=== PATIENT | female | born 1950 | race Caucasian/White ===

== ENCOUNTER 2017-02-24 16:13 | Emergency (ER) | payer OTHER, MEDICARE ==
[~2017-02-24] VITALS: Ht 154.9 cm; Wt 61.4 kg
[2017-02-24 16:19] VITALS: BP 140/72; PULSE 82; RESP 20; O2SAT 96
[2017-02-24 17:30] LABS: BASOPHILS % (AUTO) 0.4 % (0-3); EOSINOPHILS % (AUTO) 1.4 % (0-5); MONOCYTES % (AUTO) 12.1 % (4-12); Mean Corpuscular Hemoglobin 27.6 pg (27.0-35.0); Mean Corpuscular Volume 78.9 fL (81-100); NEUTROPHILS % (AUTO) 51.9 % (40-74); Platelet Count 246 bil/L (150-400)
--- NOTE | 2017-02-24 17:37 | ED.REPORT ---
HPI-Abd Pain F 40 and Over Date of Service Feb 24, 2017 ED Provider: Juan Sullivan MD Patient is a 66 year old female who presents to the ED complaining of epigastic and RUQ abdominal pain that began 4 days ago. She has had severe, persistent, "squeezing" abdominal pain for the past 2 days. She experienced similar pain one year ago that resolved without intervention, she states that she had a workup but they were never able to figure out the cause. Patient visited her PCP yesterday who obtained lab work that has not been resulted yet, meanwhile symptoms have not resolved causing her to decide to come to the emergency room. Associated symptoms include decreased appetite, nausea and vomiting. Her symptoms have been persistent since onset. Patient is a difficult historian secondary to pain. Nursing Notes Stated Complaint: ABDOMINAL PAIN Chief Complaint: Female Abdominal Pain Nursing Notes Reviewed: Yes Allergies: Coded Allergies: Penicillins (Verified Allergy, Intermediate, Rash,Itching,, 02/24/17) Scheduled PRN Hydrocodone-Acetaminophen 5-325 mg (Hydrocodone-Acetaminophen 5-325 mg) 1 Each Tablet 1 TABLET PO Q4H PRN PRN For Pain General Time Seen by MD: 16:30 Chief Complaint Abdominal pain Hx Obtained From: Patient Arrived By: Walk-in Sudden in Onset?: No Onset Occurred: 4 days ago Symptom Duration: Since onset Progression since Onset: Gradually worsening Location: : RUQ Quality: Painful Radiation: : Does not radiate Severity: Current: Moderate Severity: Maximum: Moderate Associated with: Reports: Nausea, Vomiting Pertinent Negative: Pt denies other symptoms Recent Healthcare: No recent hospitalization, Recent doctor visit Risk Factors )( AAA Risk Stratification Risk factors reviewed Past Medical History Past Medical History None reported. Past Surgical History None reported. Smoking History Unknown if Ever Smoker Social History Other Social History: Good social support, , Local resident Ambulatory Status Independent Review of Systems GI: Reports: Abdominal pain, Nausea, Vomiting Complete sys rev & neg: except as marked. Physical Exam Vital Signs Vital Signs (First) Date Time Temp Pulse Resp B/P Pulse Ox O2 Delivery O2 Flow Rate FiO2 02/24/17 16:19 37 82 20 140/72 96 Room Air Initial VS: Reviewed Head / Eyes: Atraumatic, Normocephalic, PERRL Neck: Supple, Non-tender, Full range of motion Extremities: Vascular intact, Neuro intact, No swelling, No tenderness Skin: Warm, Dry, No cyanosis Neurologic: Alert, Oriented, Nonfocal Psychiatric: Mood/affect normal, Behavior normal, Normal thought content General/Constitutional: Awake, Alert Distress / Hydration: Positive: Distress moderate (secondary to pain) GENERAL: Appears to be in significant pain Respiratory / Chest: Atraumatic, Breath sounds NL, Breath sounds = bilat, No respiratory distress Cardiovascular: Heart rate NL, Regular rhythm, Heart sounds NL, No gallop, No murmurs, No rubs Abdomen: Atraumatic, Soft, No guarding, No rebound, No distention, No palpable mass, No pulsatile mass Tenderness/Guarding/Rebound: Positive: Tender RUQ... Back: Atraumatic, Inspection NL Interpretation & Diagnostics ABDOMINAL CT w/ contrast Read by Radiology IMPRESSION: 1. No acute intra-abdominal process identified on CT. 2. Probably small hepatic cyst in left hepatic lobe. 3. Mild diverticulosis. No acute diverticulitis. Dictated by: Zeus Begum M.D. on 02/24/2017 at 19:36 Lab Results Interpretation Result Diagram: 02/24/17 1715 02/24/17 1715 Test 02/24/17 17:15 02/24/17 18:54 White Blood Count 5.0th/mm3 (3.8-10.1) Red Blood Count 4.93mil/mm3 (3.90-5.20) Hemoglobin 13.6g/dL (12.0-15.6) Hematocrit 38.9% (35.0-46.0) Mean Corpuscular Volume 78.9fL (81-100) Mean Corpuscular Hemoglobin 27.6pg (27.0-35.0) Mean Corpuscular Hemoglobin Concent 35.0% (32.0-37.0) Red Cell Distribution Width 12.6% (12.3-15.4) Platelet Count 246bil/L (150-400) Neutrophils (%) (Auto) 51.9% (40-74) Lymphocytes (%) (Auto) 34.2% (14-46) Monocytes (%) (Auto) 12.1% (4-12) Eosinophils (%) (Auto) 1.4% (0-5) Basophils (%) (Auto) 0.4% (0-3) Sodium Level 136mEq/L (134-144) Potassium Level 3.9mEq/L (3.5-5.2) Chloride Level 100mEq/L (97-108) Carbon Dioxide Level 19mmol/L (18-29) Blood Urea Nitrogen 8mg/dL (8-27) Creatinine 0.66mg/dL (0.57-1.00) Estimat Glomerular Filtration Rate 129mL/min (>59) Glucose Level 111mg/dL (60-99) Lactic Acid Level 1.2mmol/L (0.4-2.0) Calcium Level 9.6mg/dL (8.5-10.1) Magnesium Level 1.9mg/dL (1.6-2.6) Total Bilirubin 0.5mg/dL (0.0-1.2) Aspartate Amino Transf (AST/SGOT) 21U/L (0-50) Alanine Aminotransferase (ALT/SGPT) 13U/L (0-32) Alkaline Phosphatase 51U/L (25-165) Total Protein 6.5g/dL (6.4-8.4) Albumin 4.2g/dL (3.4-5.0) Lipase 26U/L (13-60) Urine Color Yellow (YELLOW) Urine Appearance Clear (CLEAR,HAZY) Urine pH 7.0 (5.0-8.0) Urine Specific [place] 1.010 (1.003-1.035) Urine Protein Negativemg/dL (NEG,TRACE) Urine Glucose (UA) Negativemg/dL (NEGATIVE) Urine Ketones Tracemg/dL (NEGATIVE) Urine Occult Blood Negative (NEGATIVE) Urine Nitrite Negative (NEGATIVE) Urine Bilirubin Negative (NEGATIVE) Urine Urobilinogen Normalmg/dL (NORMAL) Urine Leukocyte Esterase Negative (NEGATIVE) Urine RBC 0-2/hpf (0-2) Urine WBC 0-5/hpf (0-5) Urine Epithelial Cells Few/hpf (NONE-MOD) Urine Crystals None seen (NONE SEEN) Urine Bacteria Few/hpf (NONE-FEW) Urine Hyaline Casts None/lpf (NONE) Urine Granular Casts None seen (NONE SEEN) Urine Waxy Casts None seen (NONE SEEN) Urine Red Blood Cell Casts None seen (NONE SEEN) Urine White Blood Cell Casts None seen (NONE SEEN) Urine Mucus None seen (None Seen) Urine Trichomonas None seen (NONE SEEN) Urine Yeast None (NONE SEEN) Urinalysis Comment None Urine Culture Reflexed Not indicated ECG Interpretation ECG Interpretation: Sinus rhythm Rate 70 Normal axis Normal intervals No T wave abnormalities No prior for comparison Time: 18:54 Interpreted by: ED physician Re-Eval/Medical Decision Med Decision/Clinical Course Patient is a 66 year old female who presents to the ED complaining of epigastic and RUQ abdominal pain that began 4 days ago. She has had severe, persistent, "squeezing" abdominal pain for the past 2 days. She experienced similar pain one year ago that resolved without intervention, she states that she had a workup but they were never able to figure out the cause. Patient visited her PCP yesterday who obtained lab work that has not been resulted yet, meanwhile symptoms have not resolved causing her to decide to come to the emergency room. Here in the emergency department the patient is afebrile stable vital signs and examination as above. She has some mild tenderness in the epigastrium and the right upper quadrant however she tolerates very firm palpation throughout her abdomen without any significant tenderness, guarding, rigidity or rebound. The patient was treated with the below medications: Dilaudid Zofran IV fluids Thereafter she was reassessed and reported feeling much better. Serial abdominal examinations remained relatively benign. ABDOMINAL CT 1. No acute intra-abdominal process identified on CT. 2. Probably small hepatic cyst in left hepatic lobe. 3. Mild diverticulosis. No acute diverticulitis. EKG Sinus rhythm Rate 70 Normal axis Normal intervals No T wave abnormalities No prior for comparison Laboratory studies notable as below: CBC unremarkable CMP unremarkable Lactic acid within normal limits Cause of the patient's pain remains unclear at this time. Presentation is not classically suggestive of biliary colic or acute cholecystitis and there are no findings suggestive thereof on CT. Given my relatively low pretest probability I do not feel that immediately progressing to ultrasound is warranted at this moment. I am reassured by her laboratory and CT scan findings. Serial abdominal examinations remained benign. After above medications patient reported feeling much better and tolerated PO. She has had similar episodes of abdominal pain in the past that have resolved on their own with unrevealing workup. Nature of her pain is not entirely convincing peptic ulcer disease or gastritis either. I feel that she would benefit from workup by a GI specialist and I have referred her accordingly. She is advised to return to the emergency room immediately should she develop any recurrent or worsening symptoms. Serial abdominal examinations remain without any significant tenderness and I feel that further workup on an outpatient basis with good return precautions is reasonable. Prior to discharge follow-up and return precautions were reviewed in detail with the patient who verbalized understanding and agreement with the plan. The patient was discharged in stable condition. Re-Evaluation/Progress : Time of Eval: 19:50 Patient Status: Condition improved Re-Evaluation/Progress Note: Patient is rechecked. She is informed of her results and diagnosis. All questions about the intended treatment plan are addressed. She understands and agrees with the plan to discharge with follow up. Counseled Regarding: Diagnosis, Lab results, Need for follow-up, When/why to return to ED Discharge & Departure Primary Impression: Abdominal pain Abdominal location: unspecified location Qualified Code: R10.9 - Unspecified abdominal pain Additional Impressions: Decreased appetite Nausea and vomiting Vomiting type: unspecified Vomiting Intractability: unspecified Qualified Code: R11.2 - Nausea with vomiting, unspecified Disposition: Home Discharge Condition All VS Reviewed: Yes Condition: Improved Patient Instructions: Acute Abdominal Pain (ED) Additional Instructions: Thank you for seeking care at emergency room. Our primary goal today in the ED was to evaluate you for any life-threatening conditions. Your evaluation was reassuring. You will be discharged with a prescription for [place]* You should follow-up with your primary doctor in the next week. I recommend that you follow up with the referred GI specialist. You should return to the ED immediately if you develop worsening nausea, vomiting, blood in your stool, worsening abdominal pain or any other concerning signs or symptoms. Thank you for letting us partake in your care today. *You have been prescribed a narcotic for pain relief. These drugs are usually combined with acetaminophen (Tylenol#3, Percocet, Darvocet, Anexsia, Vicodin) or aspirin (Empirin#3, Percodan, Synalogs-DC) for increased effect. Narcotics act on the central nervous system to reduce pain; they also impair mental alertness and physical abilities. We advise you not to drink alcohol, drive a car, or operate dangerous equipment when you are taking theses drugs. You can lessen stomach irritation from your medicine by taking it with meals or a full glass of water. Common side effects of narcotics are: Nausea and vomiting, heartburn, constipation, dizziness, sleepiness, and mood changes. If you have bothersome side effects or symptoms of an allergic reaction (itching, hives, rash), stop taking your medicine and call your doctor or the emergency room right away. Please keep your narcotic medicine well out of the reach of children. Referrals: Ricardo Waite MD (PCP) Ez Contreras MD [facility] Portions of this note were transcribed by Paulo Shaw. I, Dr. Sullivan personally performed the history, physical exam and medical decision-making; I reviewed and confirmed the accuracy of the information in the transcribed note. Signed by: Ranjan Thakkar, 02/24/17 2113. copies to: Ricardo Waite MD, Beck O MD Feb 24, 2017 17:36 PAULO SHAW Feb 24, 2017 17:40
[2017-02-24 17:48] LABS: Magnesium 1.9 mg/dL (1.6-2.6)
[2017-02-24] MEDS ORDERED: 0.9% Sodium Chloride 1,000 ML IV ONE (17:48)
[2017-02-24] MEDS ORDERED: HYDROmorphone 0.5 mg/0.5 mL iSecure Syringe IVPUSH PRN (17:50)
[2017-02-24] MEDS ORDERED: Ondansetron 2 mg/mL 2 mL Inj IVPUSH ONE (17:50)
[2017-02-24] MEDS ORDERED: Promethazine Inj 25 MG in 0.9% Sodium Chloride 50 ML IV ONE (18:10)
[2017-02-24 19:05] LABS: APPEARANCE,URINE CLEAR (CLEAR,HAZY); COLOR,URINE YELLOW (YELLOW); OCCULT BLOOD,URINE NEGATIVE (NEGATIVE); UROBILINOGEN,URINE NORMAL (NORMAL)
[2017-02-24 19:15] VITALS: BP 164/97; PULSE 84; RESP 20; O2SAT 96
--- NOTE | 2017-02-24 19:42 | DRSVH ---
PROCEDURE: CT ABDOMEN AND PELVIS WITH CONTRAST ([id number]) INDICATIONS: 66 year-old woman with abdominal pain. TECHNIQUE: After the administration of intravenous contrast, 5 mm thick sections acquired from the diaphragm to the symphysis. 5 mm coronal and sagittal reformats were acquired. For radiation dose reduction, the following was used: automated exposure control, adjustment of mA and/or kV according to patient siz e. COMPARISON: None. FINDINGS: Image quality: Excellent. ABDOMEN: Lung bases: Lung bases are clear. Heart size is normal. Process myocardial. Solid organs: A 7 mm indeterminate hepatic hypodensity in the left hepatic lobe is probably a cyst. Liver and spleen are normal in size and enhancement. Gallbladder is normal. Biliary system is non d ilated. Pancreas enhances normally. No adrenal nodules. Kidneys demonstrate normal size and enhanc ement, without hydronephrosis. Peritoneum and bowel: Bowel loops demonstrate normal wall thickness and caliber. There are a few co lonic diverticula. No evidence for acute diverticulitis. No free fluid or air. Nodes and vessels: No retroperitoneal or mesenteric adenopathy by size criteria. Aorta and inferior vena cava are normal in size. Miscellaneous: No ventral hernias. PELVIS: Genitourinary: Bladder wall thickness is normal. Miscellaneous: No inguinal hernias or adenopathy. Bones: No suspicious bony lesions. No vertebral body compression fractures. IMPRESSION: 1. No acute intra-abdominal process identified on CT. 2. Probably small hepatic cyst in left hepatic lobe. 3. Mild diverticulosis. No acute diverticulitis. Dictated by: Zeus Bgeum M.D. on 02/24/2017 at 19:36 Approved by: Zeus Begum M.D. on 02/24/2017 at 19:40
[2017-02-24] MEDS ORDERED: HYDR-4003 PO (19:52)
[2017-02-24 20:06] VITALS: BP 122/64; PULSE 76; RESP 16; O2SAT 96
[2017-03-13] MEDS ORDERED: [UNRECOGNIZED DRUG - OTHER] PO (14:11)
[2017-03-13] MEDS ORDERED: HYDR200T PO (14:11)
[2017-03-13] MEDS ORDERED: HYDR200T5 PO (14:11)
[2017-03-13] MEDS ORDERED: CARV12.52 PO (14:11)
[2017-03-13] MEDS ORDERED: ESTR1PAT39 TD (14:11)
[2017-03-13] MEDS ORDERED: PRD1T PO (14:11)
[2017-03-13] MEDS ORDERED: OMEP20CA11 PO (14:11)
[2017-03-13] MEDS ORDERED: SUMA100T2 PO (14:11)
== END 2017-02-24 20:03 | disposition home or self-care (01) ==
LOC: SED 16:13
DX: R10.11 Right upper quadrant pain (principal); R63.0 Anorexia; R11.2 Nausea with vomiting, unspecified; Z88.0 Allergy status to penicillin
CPT/HCPCS: 36415; 74177; 80053; 81000; 83605; 83690; 83735; 85025; 93005; 96361; 96374; 96375; 99285; J1170; J2405; J2550; J7030; Q9967

== ENCOUNTER 2017-03-14 12:51 | Day surgery (SDC) | payer OTHER, MEDICARE ==
[~2017-03-14] VITALS: Ht 154.9 cm; Wt 59.0 kg
[~2017-03-14 12:51] MED LIST: 0.9% Sodium Chloride 1,000 ML IV PRN; CARV12.52 PO; ESTR1PAT39 TD; HYDR-4003 PO; HYDR200T PO; HYDR200T5 PO; OMEP20CA11 PO; PRD1T PO; SUMA100T2 PO; Sodium Chloride LOK Flush 10 mL Syringe IV PRN; [UNRECOGNIZED DRUG - OTHER] PO; fentaNYL-PF 50 mCg/mL 2 mL Inj IVPUSH PRN
[2017-03-14 13:16] VITALS: BP 121/74; PULSE 78; RESP 16; O2SAT 96
[2017-03-14] MEDS ORDERED: TRAM50TA2 PO (13:16)
[2017-03-14] MEDS ORDERED: MAGN500C4 PO (13:23)
[2017-03-14 15:04] VITALS: BP 130/69; PULSE 68; RESP 14; O2SAT 98
[2017-03-14 15:14] VITALS: BP 115/66; PULSE 69; RESP 14; O2SAT 97
[2017-03-14 15:25] VITALS: BP 125/67; PULSE 70; RESP 12; O2SAT 97
[2017-03-14 15:40] VITALS: BP 138/77; PULSE 69; RESP 14; O2SAT 97
--- NOTE | 2017-03-14 16:10 | ENDO ---
[address] [address] ENDOSCOPY PROCEDURE PATIENT: JULIAN BOLES : 1950 MR#: [id number] ADMIT: 03/14/2017 JOB ID: [id number] DATE: 03/14/2017 PRIMARY PROVIDER: Jacquelyn Erwin PROCEDURE: 1. Esophagogastroduodenoscopy with biopsy. 2. Colonoscopy. INDICATIONS: A 66-year-old female with epigastric pain in the setting of NSAID use. Clinically, she has improved since discontinuation of Excedrin. She is on PPI. She also reports for colon cancer screening. She has a tendency towards constipation. EQUIPMENT: GIF H 180 J and a PCF H 190 DL. SEDATION: 1. 7 mg Versed. 2. 150 mcg fentanyl. COMPLICATIONS: None identified. BOWEL PREPARATION: Fair, adequate examination. PROCEDURAL INFORMATION: After the risks and benefits were explained, written and verbal informed consent was obtained. The patient was brought into the endoscopy suite and placed into the left lateral decubitus position. Sedation was achieved as above. The scope introduced into the mouth through the bite block, and advanced under direct visualization to the first portion of the duodenum. We encountered a very tight ulcerated smooth stricture between D1 and D2 and could not advance the scope through this location. I suspect this was NSAID induced. I did not see any obvious signs of neoplasia at this time. The scope was withdrawn. Retroflexed views were accomplished in the stomach. The stomach was decompressed. The scope removed from the patient who tolerated the procedure reasonably well. The patient was then turned around. A digital rectal examination accomplished. Apart from some mild internal hemorrhoids. No other significant pathology appreciated. The scope was introduced into the rectum and advanced to the cecum as identified by the appendiceal orifice and ileocecal valve. The scope was slowly withdrawn to carefully examine the mucosa for any defects or lesions. Multiple direct views were made through the dentate line for exclusion of pathology. The colon was decompressed. Scope removed from the patient who tolerated the procedure reasonably well. FINDINGS: 1. Duodenum: Smooth ulcerated high-grade stenosis encountered between D1 and D2 which prohibited passage of the endoscope into D2. This was a difficult stricture to even see as it was well around the corner between D1 and D2. 2. Stomach: No outlet obstruction. No masses. No ulcers. Minimal nonspecific gastropathy appreciated and, therefore, biopsy was acquired for exclusion of Helicobacter or other pathology. Retroflexed views of the LES were unremarkable apart from a subtle sliding hiatal hernia. 3. Esophagus: The squamocolumnar junction correlated with the top of the gastric folds. The GEJ was at 36 cm from the incisors. No acute erosive changes. No strictures. No mass lesions. The remainder of the esophagus appeared unremarkable. 4. Colon: The patient had an exceptionally difficult navigation through the left colon. This is quite a tortuous twisty course. I did not see any signs of polyps, mass lesions or any inflammation throughout. ENDOSCOPIC DIAGNOSES: 1. Hiatal hernia. 2. Minimal gastropathy. 3. Ulcerated duodenal stricture. 4. Mild hemorrhoids. 5. Challenging cecal navigation. RECOMMENDATIONS: 1. Await histopathology. 2. Continue exceptionally well chewed food. 3. Continue b.i.d. PPI. 4. Continue to avoid all nonsteroidal anti-inflammatory therapy. 5. Repeat EGD in approximately four weeks' time. I would recommend anesthesia with her next procedure in that she had a difficult time accepting the endoscope in her oropharynx and intubation was challenging. I am going to additionally request fluoroscopy for this examination in that we may need to dilate the duodenum to get through into D2 proper. 6. Repeat colon cancer screening with colonoscopy can be considered in 10 years' time. At that time, if alternative means are readily available, I would recommend this as first line.
--- NOTE | 2017-03-17 13:41 | PATH ---
SURGICAL PATHOLOGY Attending Physician:Kaelyn Adams CASE STATUS: Signed Out PATIENT NAME: JULIAN BOLES PID: [id number] : 1950 DATE COLLECTED:03/14/2017 00:00 SPECIMEN: Gastric, Biopsy CLINICAL HISTORY: 1. GASTRIC BX AND R/O H.PYLORI FINAL DIAGNOSIS: 1.STOMACH, BIOPSY: BODY-TYPE MUCOSA WITH MILD CHRONIC GASTRITIS. Negative for Helicobacter organisms by immunohistochemistry. Negative for intestinal metaplasia. Negative for dysplasia and malignancy. ICD10 R10.9 GROSS DESCRIPTION: The specimen is received in one formalin filled container labeled with the patient's name, sublabeled "gastric" and consists of a 0.2 x 0.2 x 0.2 CM portion of tissue which is entirely submitted in one cassette. 03/15/2017DC MICRO DESCRIPTION: An immunohistochemical stain was performed to evaluate for Helicobacter organisms and is negative. A control stain showed appropriate reactivity. This test was developed and its performance characteristics determined by [employer]. It has not been cleared or approved by the U. S. Food and Drug Administration. The FDA has determined that such clearance or approval is not necessary. This test is used for clinical purposes. It should not be regarded as investigational or for research. ICD-9 CODES: CPT CODES: 1: 74923, 93596 Electronically Signed Out Keke Choi MD [facility] Pathology [facility] [address], [place] [address] Technical component performed at [facility], [address], [place], [address]
== END 2017-03-14 23:59 | disposition home or self-care (01) ==
LOC: END 12:51
PROVIDERS: ATTEND Internal Medicine Gastroenterology
DX: Z12.11 Encounter for screening for malignant neoplasm of colon (principal); R10.13 Epigastric pain; K29.50 Unspecified chronic gastritis without bleeding; K31.5 Obstruction of duodenum; K44.9 Diaphragmatic hernia without obstruction or gangrene; K26.9 Duodenal ulcer, unspecified as acute or chronic, without hemorrhage or perforation; K64.8 Other hemorrhoids
CPT/HCPCS: 43239; 99153; G0121; G0500; J2250; J3010; J7030

== ENCOUNTER 2017-04-11 13:45 | Day surgery (SDC) | payer OTHER, MEDICARE ==
[~2017-04-11] VITALS: Ht 154.9 cm; Wt 59.0 kg
[~2017-04-11 13:45] MED LIST changes: -0.9% Sodium Chloride 1,000 ML IV PRN; +0.9% Sodium Chloride 1,000 ML IV SCH; -HYDR200T5 PO; +IMI100 PO; +Lactated Ringer's 1,000 ML IV ONE; +MAGN500C4 PO; -SUMA100T2 PO; +TRAM50TA2 PO
[2017-04-11] MEDS ORDERED: MetoCLOpramide 5 mg/mL 2 mL Inj ONE (13:46)
[2017-04-11] MEDS ORDERED: Propofol 10,000 mCg/mL 20 mL Inj ONE (13:46)
[2017-04-11] MEDS ORDERED: Ketamine 10 mg/mL 20 mL Inj ONE (13:46)
[2017-04-11 14:14] VITALS: BP 146/78; PULSE 73; RESP 16; O2SAT 97
[2017-04-11] MEDS ORDERED: ACET-2766 PO (14:21)
[2017-04-11] MEDS ORDERED: POLY17PO6 PO (14:21)
--- NOTE | 2017-04-11 14:57 | PCM.HPANE ---
Patient Data Date of Service: Apr 11, 2017 Surgeon Admitting Provider: Attending Provider:Darvin Gaming MD Primary Care Physician:Jacquelyn Erwin MD Other Provider:Niesha López Anesthesia Reason for Visit Duodenal Stricture Ht/WT & BMI Height (Feet): 5 Height (Inches): 1 Weight (Kilograms): 58.97 Body Mass Index 24.00 Allergies Coded Allergies: Penicillins (Verified Allergy, Intermediate, Rash,Itching,, 03/14/17) Past Anesthesia History Anesthesia History: Denies:: Abnormal Airway, Anesthesia Reactions, Difficult Intubation, Fam Anesthesia Reaction, Fam Malignant Hypertherm, Malignant Hyperthermia Diabetes History Hx Diabetes?: No MRSA MRSA: No Medications Hypertension Medication: Yes Home Meds Incl Beta Spring: Yes Date Beta Spring Taken: Apr 11, 2017 Time Beta Spring Taken: 0800 Reported Medications Polyethylene Glycol 3350 (Miralax)17 Gm Powd.pack17 Gm PO Q2DAY 04/11/17 Acetaminophen (Tylenol Arthritis)650 Mg Tablet.er650 Mg PO DAILY 04/11/17 Sumatriptan (Imitrex)100 Mg Pwkidr929 Mg PO BID PRN For Headache 04/07/17 Magnesium Oxide (Magnesium)500 Mg Sllbvqt735 Mg PO DAILY 03/14/17 Tramadol 50 Mg Jtvsmw12 Mg PO HS PRN For Pain Ref 0 03/14/17 Hydroxychloroquine Sulfate (Plaquenil)200 Mg Xsrkcx971 Mg PO 03/13/17 Omeprazole 20 Mg Capsule.dr20 Mg PO BID Ref 0 03/13/17 [Excedrin Extra] No Conflict Iktlr415 Mg PO DAILY 03/13/17 Carvedilol 12.5 Mg Ittzcs83.5 Mg PO BID Ref 0 03/13/17 Discontinued Reported Medications PredniSONE 1 Mg Tab1 Mg PO UD Ref 0 04/07/17 Hydrocodone-Acetaminophen 5-325 mg 1 Each Tablet1 Tablet PO Q4H PRN For Pain Ref 0 04/07/17 Estradiol/Levonorgestrel (Climara Pro Patch)1 Each Patch.tdwk1 Each TD WEEKLY 04/07/17 History History of ENT Problems?: No HEENT History: Denies:: Abnormal Airway Difficult Intubation Dysphagia Hearing Problem Denture Type: None Teeth Condition: Tooth Decay Hx of Heart Problems?: Yes Cardiovascular History: Positive for:: Hypertension Denies:: AICD Atrial Fibrillation Chest Pain Coronary Artery Disease Pacemaker Valvular Heart Disease Other Cardiac History: no RI Hx of Respiratory Problem?: No Respiratory History: Denies:: Asthma Tuberculosis Use of Inhalers / NEBS Hx Neurologic Problems?: Yes Neurological History: Positive for:: Headaches (migraines) Denies:: CVA Seizures TIA Other Neurological Pertinent: neurofibromatosis - cutaneous; 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 Other Skin Pertinent History: neurofibromatosis Hx Musculoskeletal Problems?: Yes Musculoskeletal History: Denies:: Fibromyalgia Joint Replacement Other History/Comment rheumatoid arthritis - weaned off prednisone Hx of Psycho/Social Problems?: No Psycho Social History: Denies:: Anxiety Hx Depression Hx Surgeries?: Yes (hysto, arthro knee, tonsils) Hx Any Other Health Problems?: Yes Other History: Positive for:: Hospitalization History Blood Transfusions: Positive for:: Accept Blood Products? Denies:: Blood Transfusions Hx Diabetes: No Hx Alcohol Use: NoHx Substance Use: No Smoking Status: Never Smoker Unknown if Ever Smoker Have You Smoked inLast 12 mo: No Stop/Bang Treated for Sleep Apnea?: No Do You Have a CPAP Machine?: No S-Snoring: Do You Snore Loudly: No T-Tired: feel tired, fatigued: No O-Obsered: Observed not breath: No P-Blood Pressure: treated: Yes B- Body Mass Index > 35 kg/m2: No A- Age over 50: Yes N- Neck Large Circumference: No G- Gender Male: No ROSALIO Total Score: 2 ROSALIO Risk Assessment: Low Risk, <3 Yes Risk Assessment Category Category 1A: Patient has history of documented sleep apnea, and HAS NOT received any narcotic, sedative or anesthesia administration during this stay. Category 1B: Patient has history of documented sleep apnea, and HAS received any narcotic , sedative or anesthesia administration during this stay Category 2: Patient has SUSPECTED Obstructive Sleep Apnea, and HAS received any narcotic , sedative or anesthesia administration during this stay. Category 3: Patient has SUSPECTED Obstructive Sleep Apnea and HAS NOT received narcotic, sedative or anesthesia administration during this stay. Category 4: Outpatient in Procedural Areas with known sleep apnea or who screen positive for High Risk via the STOP/BANG questionnaire. Exam Exam Vital Signs Vital Signs Date Time Temp Pulse Resp B/P Pulse Ox O2 Delivery O2 Flow Rate FiO2 04/11/17 14:14 73 16 146/78 97 Room Air General Appearance: Alert, Oriented X3, Cooperative, No Acute Distress HEENT/AIRWAY: MP 2, Neck Movement (from), Mouth Opening (3), Other (tmd3) Lungs: Normal Air Movement Heart: Exam Unremarkable, Regular Rate/Rhythm, Normal S1, Normal S2, No Murmurs /Rubs/Gallops Meds/Labs/Diagnostics Admission Meds Current Medications Lactated Ringer's (Lr) 1,000 ml @ 10 mls/hr Q24H ONCE IV Last administered on 04/11/17t 14:44; Start 04/11/17 at 06:00; Stop 04/12/17 at 05:59 Plan Impression Patient chart reviewed, patient interviewed and anesthestic plan with risks, benefits, and alternatives discussed, and informed consent obtained. NPO per Anesth. Guidelines: Yes ASA Physical Status: ASA3 Severe Disease Anesthetic Plan: TIVA Bene/Risks/Altern/Consents: Yes HP Complete Prior to Induction: Yes Jayson Hayes MD Apr 11, 2017 14:56
[2017-04-11 16:22] VITALS: BP 124/67; PULSE 85; RESP 16; O2SAT 97
[2017-04-11 16:32] VITALS: BP 133/66; PULSE 82; RESP 16; O2SAT 99
--- NOTE | 2017-04-11 16:41 | ENDO ---
[address] [address] ENDOSCOPY PROCEDURE PATIENT: JULIAN BOLES : 1950 MR#: [id number] ADMIT: 04/11/2017 JOB ID: [id number] DATE OF SERVICE: 04/11/2017 PRIMARY PROVIDER: Jacquelyn Erwin MD PROCEDURE: Esophagogastroduodenoscopy under fluoroscopy with anesthesia. INDICATIONS: A 66-year-old female with an apparent high-grade stricture induced by heavy NSAID therapy. She returns today for an attempt at dilatation. She has been off NSAIDs and has been using PPI. She remains quite bloated. EQUIPMENT: GIF-160. SEDATION: Monitored anesthesia as provided by Dr. Jayson Hayes. COMPLICATIONS: None identified. PROCEDURE INFORMATION: After the risks and benefits were explained, written and verbal informed consent was obtained. The patient was brought into the endoscopy suite and placed into the left lateral decubitus position. Sedation was achieved using the above-stated medications with the addition of oxygen via nasal cannula. The scope was introduced into the mouth through the bite block, and advanced to the stomach. There was a moderate amount of retained food debris present. We were able to navigate on past this into the duodenal bulb. There was a moderate amount of food debris in the bulb. We removed this with a combination of a Hayes Net and cold forceps. We then identified a small punctate ulcer right in the corner from duodenal bulb to the second portion. I could not navigate the 8.6 mm scope through this area. Lumen size was estimated at somewhere down in the 4-5 mm range. We attempted to pass a wire through this area but I could not get the 10-12 CRE balloon guidewire to float downstream without an unacceptable amount of resistance on the wire. It was difficult to maintain position on the stenosis because it was right on the corner. We swapped out for an angled 0.035 450 cm Dream wire and again had an even greater difficulty attempting scope position to advance the wire through the stenosis. Our procedure time was approximately 1 hour worth of effort. I did not seem to successfully find the opening to pass the wire. We therefore aborted any further effort. Excess air and fluid was removed from the stomach. The stomach was decompressed. The scope removed from the patient who tolerated the procedure reasonably well. FINDINGS: 1. Retained food debris. 2. High-grade duodenal smooth ulcerated stricture. RECOMMENDATIONS: 1. Smoothie consistency diet only for now. 2. Will make the referral down to [facility] to see if they may have success in dilatation, and if not, the patient will likely need some form of an operative intervention, i.e., Andres-en-Y gastric bypass.
[2017-04-11 16:42] VITALS: BP 142/78; PULSE 74; RESP 16; O2SAT 98
[2017-04-11 16:52] VITALS: BP 149/69; PULSE 69; RESP 16; O2SAT 100
--- NOTE | 2017-04-11 17:42 | PCM.ANEP1 ---
Post Anesthesia PACU Phase 1 Assessment Date of Service: Apr 11, 2017 Vital Signs Vital Signs Date Time Temp Pulse Resp B/P Pulse Ox O2 Delivery O2 Flow Rate FiO2 04/11/17 16:52 69 16 149/69 100 Room Air 04/11/17 16:42 74 16 142/78 98 Room Air 04/11/17 16:32 82 16 133/66 99 Room Air 04/11/17 16:22 85 16 124/67 97 Room Air 04/11/17 14:14 73 16 146/78 97 Room Air Anesthetic Administered: TIVA Level of Alertness: Awake, talking VELA's with Equal Strength: Yes Pain: No Pain Scale Score: 0 Nausea or Vomiting: No CV Function & Hydration Stable: Yes Airway Device: none Oxygen Delivery: Nasal Cannula Lungs: Normal Air Movement Summary 04/11/17 16:52 69 16 149/69 100 Room Air PACU Phase 2 Assessment Complications: No Follow up Care: N/A Patient Instructions Provided: N/A Jayson Hayes MD Apr 11, 2017 17:41
== END 2017-04-11 23:59 | disposition home or self-care (01) ==
LOC: END 13:45
PROVIDERS: ATTEND Internal Medicine Gastroenterology
DX: K31.5 Obstruction of duodenum (principal); Z53.8 Procedure and treatment not carried out for other reasons; T39.395A Adverse effect of other nonsteroidal anti-inflammatory drugs [NSAID], initial encounter; I10 Essential (primary) hypertension
CPT/HCPCS: 43245; 74360; J2250; J2704; J2765; J7120